=== PATIENT | female | born 1995 | race African-American/Black ===

== ENCOUNTER 2020-09-28 14:48 | Emergency (ER) | payer MEDICAID ==
[~2020-09-28] VITALS: Ht 172.7 cm; Wt 76.0 kg
[2020-09-28] MEDS ORDERED: FAMOTIDINE 20MG/2ML VIAL IV STA (15:16)
[2020-09-28] MEDS ORDERED: METOCLOPRAMIDE HCL 10MG/2ML VIAL IV STA (15:16)
[2020-09-28] MEDS ORDERED: VISCOUS LIDOCAINE 2% 15 ML UDC PO STA (15:16)
[2020-09-28] MEDS ORDERED: MAGNESIUM/ALUMINUM HYDROXIDE/SIMETHICONE 30ML UDC PO STA (15:16)
[2020-09-28] MEDS ORDERED: SODIUM CHLORIDE 0.9% 1,000 ML IV ONE (15:30)
[2020-09-28 16:11] LABS: BASOPHILS % 0.7 % (0.0-2.0); EOSINOPHILS % 0.1 % (0.0-5.0); HEMATOCRIT. 35.3 % (36.0-48.0); HEMOGLOBIN. 11.8 g/dL (12.0-16.0); LYMPHOCYTES % 16.8 % (20.0-50.0); MEAN CORPUSCULAR HEMOGLOBIN 27.4 pg (28.0-32.0); MEAN CORPUSCULAR VOLUME 81.9 fL (81.0-99.0); MONOCYTES % 5.3 % (2.0-8.0); NEUTROPHILS % 77.1 % (40.0-76.0); PLATELET 359 x1000/uL (130-400); RED BLOOD CELL COUNT 4.31 mill/uL (4.2-5.4); RED CELL DISTRIBUTION WIDTH 14.6 % (11.6-14.6)
[2020-09-28 16:14] LABS: CHLORIDE 103 mEq/L (98-107)
[2020-09-28 16:18] LABS: ETHANOL BLOOD < 10 mg/dL; HCG SCREEN NEGATIVE
[2020-09-28 16:57] LABS: CLARITY URINE CLEAR (CLEAR); COLOR URINE DARK YELLOW (YELLOW); KETONES URINE 1+ (NEGATIVE); LEUKOCYTE ESTERASE URINE NEGATIVE (NEGATIVE); NITRITE URINE NEGATIVE (NEGATIVE); OCCULT BLOOD URINE NEGATIVE (NEGATIVE); PH URINE 6.5 (4.5-8.0); PROTEIN URINE 1+ (NEGATIVE); SPECIFIC GRAVITY URINE 1.038 (1.005-1.030)
[2020-09-28 17:03] LABS: *AMPHETAMINES SCREEN URINE NEGATIVE (NEGATIVE); *BARBITURATES SCREEN URINE NEGATIVE (NEGATIVE); *BENZODIAZEPINES SCREEN URINE NEGATIVE (NEGATIVE)
[2020-09-28 17:04] LABS: *COCAINE SCREEN URINE NEGATIVE (NEGATIVE); CANNABINOID URINE SCREEN NEGATIVE (NEGATIVE); METHADONE URINE SCREEN NEGATIVE (NEGATIVE); OPIATES URINE SCREEN NEGATIVE (NEGATIVE); PHENCYCLIDINE URINE SCREEN NEGATIVE (NEGATIVE)
[2020-09-28] MEDS ORDERED: ONDANSETRON HCL 4MG/2ML INJ IV ONE (18:45)
[2020-09-28] MEDS ORDERED: SUCRALFATE 1 G/10 ML UDC PO ONE (18:45)
[2020-09-28] MEDS ORDERED: ONDA4TAB5 MT (19:29)
[2020-09-28] MEDS ORDERED: SUCR1TAB30 MT (19:29)
[2020-09-28] MEDS ORDERED: FAMO-135 MT (19:29)
[2020-09-28 21:34] VITALS: BP 126/78
== END 2020-09-28 21:50 | disposition home or self-care (01) ==
LOC: ER 15:23
DX: R10.13 Epigastric pain (principal); R11.2 Nausea with vomiting, unspecified; E80.7 Disorder of bilirubin metabolism, unspecified; R03.0 Elevated blood-pressure reading, without diagnosis of hypertension
CPT/HCPCS: 36415; 76705; 80053; 80305; 80320; 81003; 81025; 83690; 84703; 85025; 85610; 93005; 96361; 96374; 96375; 99285; J2405; J2765; J7030; Z7610; G0480